=== PATIENT | male | born 1990 | race Caucasian/White ===

== ENCOUNTER 2017-03-21 15:42 | Emergency (ER) | payer OTHER ==
[2017-03-21 15:52] VITALS: BP 145/93
[2017-03-21] MEDS ORDERED: LIDOCAINE 1%, 20ML ONE (16:21)
[2017-03-21] MEDS ORDERED: LIDOCAINE 1%, 20ML INFIL ONE (16:30)
[2017-03-21] MEDS ORDERED: DIPH,PERTUSS(ACELL),TET VAC/PF 0.5 ML IM-VACC ONE ×2 (16:30→17:11)
[2017-03-21] MEDS ORDERED: BACITRACIN ZINC OINT 500U/GM, 0.9 GM ONE (17:10)
== END 2017-03-21 17:41 | disposition home or self-care (01) ==
LOC: ED 17:20
DX: S91.112A Laceration without foreign body of left great toe without damage to nail, initial encounter (principal); X58.XXXA Exposure to other specified factors, initial encounter; Y93.89 Activity, other specified; Y92.89 Other specified places as the place of occurrence of the external cause; Y99.8 Other external cause status
CPT/HCPCS: 12001; 13132; 73630; 90471; 90715; 99285; J3490

== ENCOUNTER 2017-04-05 20:29 | Emergency (ER) | payer SELFPAY ==
[~2017-04-05] VITALS: Ht 172.7 cm; Wt 95.2 kg
[2017-04-05 20:32] VITALS: BP 132/83
== END 2017-04-05 21:36 | disposition home or self-care (01) ==
LOC: ED 21:05
DX: S91.312D Laceration without foreign body, left foot, subsequent encounter (principal); X58.XXXD Exposure to other specified factors, subsequent encounter
CPT/HCPCS: 99283